=== PATIENT | female | born 1970 | race Hispanic/Latino ===

== ENCOUNTER 2024-07-09 21:02 | Emergency (ER) | payer OTHER ==
--- NOTE | 2024-07-09 21:24 | EDPHYS ---
Physician Documentation [facility] Name: Maria Alejandra Weir Age: 54 yrs Sex: Female : 1970 Arrival Date: 07/09/2024 Time: 21:02 Bed DX3 Private MD: ED Physician James Pisano HPI: 07/09 21:19 This 54 yrs old Female presents to ER via Unassigned with complaints of Toothache. kb 21:19 Pt is a 54 year old female who presents for toothache to right upper jaw that has been kb ongoing for 3 days. States she had a tooth extraction on Tuesday afternoon, 4 days ago. States she has had some pus draining from the extraction site. Called her dentist and was told to come to the ER for antibiotics. Historical: - Allergies: 21:30 PENICILLINS; ha1 - Immunization history:: Adult Immunizations up to date. - Infectious Disease History:: Denies. - Social history:: Smoking status: Patient denies any tobacco usage or history of. ROS: 21:20 Constitutional: As per HPI kb Exam: 21:20 Constitutional: This is a well developed, well nourished patient who is awake, alert, kb and in no acute distress. Head/Face: Normocephalic, atraumatic. Cardiovascular: Regular rate Respiratory: Respirations even and unlabored. No increased work of breathing. Talking in full sentences Skin: Warm, dry with normal turgor. Normal color. MS/ Extremity: Pulses equal, no cyanosis. Neurovascular intact. Full, normal range of motion. Neuro: Awake and alert, GCS 15, oriented to person, place, time, and situation. 21:20 ENT: Dental exam: gum swelling, that is moderate, specifically in the upper right second bicuspid (#4), pain, that is moderate, specifically in the upper right second bicuspid (#4), Vital Signs: 21:25 BP 138 / 101; Pulse 77; Resp 16; Temp 97.3(T); Pulse Ox 99% on R/A; Weight 111.13 kg; ha1 Height 5 ft. 5 in. ; Pain 10/10; 21:25 Body Mass Index 40.77 (111.13 kg, 165.1 cm) ha1 21:25 Pain Scale: Adult ha1 MDM: 21:12 Medical Screening Exam initiated kb 21:23 Differential diagnosis: dental caries, gingivitis, dental abscess, pericoronitis. Data kb reviewed: vital signs, nurses notes. I considered the following discharge prescriptions or medication management in the emergency department I discussed and recommended Over The Counter medications, augmentin prescribed. Counseling: I had a detailed discussion with the patient and/or guardian regarding the historical points, exam findings, and any diagnostic results supporting the discharge/admit diagnosis, the need for outpatient follow up, a dentist, to return to the emergency department if symptoms worsen or persist or if there are any questions or concerns that arise at home. Administered Medications: 21:35 Drug: Amoxicillin-Clavulanate PO 875 mg PO once Route: PO; ha1 21:49 Follow up: Response: No adverse reaction 1 21:35 Drug: [place] PO 10 mg-325 mg 1 tabs PO once Route: PO; ha1 21:49 Follow up: Response: No adverse reaction; Marked relief of symptoms; Pain is decreased; ha1 RASS: Alert and Calm (0) Disposition: 07/10 18:47 Co-signature as Attending Physician, James Pisano MD I agree with the assessment sp4 and plan of care. I reviewed the patient's care provided by the Advanced Practice Provider and agree with the diagnosis and treatment plan. Disposition Summary: 07/09/24 21:24 Discharge Ordered Notes: Location: Home kb Condition: Stable kb Diagnosis - Periapical abscess without sinus kb Followup: kb - With: Emergency Department - When: As needed - Reason: Worsening of condition Followup: kb - With: Private Physician - When: 2 - 3 days - Reason: Recheck today's complaints, Continuance of care, Re-evaluation by your physician Discharge Instructions: - Discharge Summary Sheet kb - Skin Abscess, [id number] kb - Dental Pain, [id number] kb Forms: - Medication Reconciliation Form kb - Antibiotic Education kb - Prescription Opioid Use kb - Patient Portal Instructions kb - Leadership Thank You Letter kb Prescriptions: - Augmentin 875-125 mg Oral Tablet - take 1 tablet ORAL route every 12 hours for 10 days; 20 tablet; Refills: 0, kb Product Selection Permitted Signatures: Mariana Saenz FNP-C FNP-Ckb Ayala, Heidy, RN RN ha1 James Pisano MD MD sp4 Corrections: (The following items were deleted from the chart) 07/09 21:38 21:30 Allergies: No Known Allergies; ha1 ha1
[2024-07-09] MEDS ORDERED: AMOX/K CLAV 875 MG TAB ONE (21:33)
[2024-07-09] MEDS ORDERED: HYDROCODONE/APAP 10/325 TAB ONE (21:33)
--- NOTE | 2024-07-09 21:50 | ER ---
[facility]'s [facility] Name: Maria Alejandra Weir Age: 54 yrs Sex: Female : 1970 Arrival Date: 07/09/2024 Time: 21:02 Bed DX3 Private MD: Diagnosis: Periapical abscess without sinus Presentation: 07/09 21:25 Chief complaint: Patient states: TOOTH ACHE ON THE RIGHT SIDE OF JAW FOR THE PAST THREE ha1 DAYS. 21:25 Coronavirus screen: Client denies travel out of the [place] in the last 14 days. Ebola ha1 Screen: No symptoms or risks identified at this time. Initial Sepsis Screen: Does the patient meet any 2 criteria? No. Patient's initial sepsis screen is negative. Does the patient have a suspected source of infection? No. Patient's initial sepsis screen is negative. Risk Assessment: Do you want to hurt yourself or someone else? Patient reports no desire to harm self or others. Onset of symptoms was July 09, 2024. 21:25 Method Of Arrival: Ambulatory ha1 21:25 Acuity: MIC 5 ha1 Triage Assessment: 21:30 General: Appears uncomfortable, Behavior is cooperative. EENT: Reports pain in right ha1 jaw. Neuro: Level of Consciousness is awake, alert, obeys commands, Oriented to person, place, time, situation. Cardiovascular: Capillary refill < 3 seconds Patient's skin is warm and dry. Respiratory: Airway is patent Respiratory effort is even, unlabored, Respiratory pattern is regular, symmetrical. GI: Abdomen is round non-distended. : No signs and/or symptoms were reported regarding the genitourinary system. Musculoskeletal: Circulation, motion, and sensation intact. Range of motion: intact in all extremities. Historical: - Allergies: 21:30 PENICILLINS; ha1 - Immunization history:: Adult Immunizations up to date. - Infectious Disease History:: Denies. - Social history:: Smoking status: Patient denies any tobacco usage or history of. Screenin:40 [facility] ED Fall Risk Assessment (Adult) History of falling in the last 3 months, ha1 including since admission No falls in past 3 months (0 pts) Confusion or Disorientation No (0 pts) Intoxicated or Sedated No (0 pts) Impaired Gait No (0 pts) Mobility Assist Device Used No (0 pt) Altered Elimination No (0 pt) Score/Fall Risk Level 0 - 2 = Low Risk Oriented to surroundings, Maintained a safe environment, Educated pt \T\ family on fall prevention, incl call for assistance when getting out of bed, Hourly rounding (assess needs \T\ fall precautionary measures) done. Abuse screen: Denies threats or abuse. Denies injuries from another. Nutritional screening: No deficits noted. Tuberculosis screening: No symptoms or risk factors identified. Vital Signs: 21:25 BP 138 / 101; Pulse 77; Resp 16; Temp 97.3(T); Pulse Ox 99% on R/A; Weight 111.13 kg; ha1 Height 5 ft. 5 in. ; Pain 10/10; 21:25 Body Mass Index 40.77 (111.13 kg, 165.1 cm) ha1 21:25 Pain Scale: Adult [facility] ED Course: 21:04 Patient arrived in ED. [id number] 21:12 Mariana Saenz FNP-C [facility] 21:12 James Pisano MD is Attending Physician. 21:35 Aruna Shabazz, DENISE is Primary Nurse. ha1 21:37 Triage completed. ha1 21:40 Patient has correct armband on for positive identification. Bed in low position. Call ha1 light in reach. Side rails up X 1. 21:40 No provider procedures requiring assistance completed. Patient did not have IV access ha1 during this emergency room visit. 21:50 Arm band placed on right wrist. ha1 21:50 Provided Education on: FOLLOW [employer]. ha1 Administered Medications: 21:35 Drug: Amoxicillin-Clavulanate PO 875 mg PO once Route: PO; ha1 21:49 Follow up: Response: No adverse reaction ha1 21:35 Drug: [place] PO 10 mg-325 mg 1 tabs PO once Route: PO; ha1 21:49 Follow up: Response: No adverse reaction; Marked relief of symptoms; Pain is decreased; ha1 RASS: Alert and Calm (0) Medication: 21:41 VIS not applicable for this client. ha1 Outcome: 21:24 Discharge ordered by . kb 21:49 Discharged to home ambulatory, ha1 21:49 Condition: stable 21:49 Discharge instructions given to patient, Instructed on discharge instructions, follow up and referral plans. medication usage, Demonstrated understanding of instructions, follow-up care, medications, Prescriptions given X 1, 21:50 Patient left the ED. ha1 Signatures: Mariana Saenz FNP-C FNP-Deyanira [id number] Aruna Shabazz RN RN ha1 Corrections: (The following items were deleted from the chart) 21:38 21:30 Allergies: No Known Allergies; ha1 ha1 21:49 21:49 Response: No adverse reaction; Marked relief of symptoms ha1 ha1
[2024-07-09 22:17] VITALS: BP 138/101; TEMP 97.3; O2SAT 99
== END 2024-07-09 21:50 | disposition home or self-care (01) ==
LOC: ER 21:02
DX: K04.7 Periapical abscess without sinus (principal)
CPT/HCPCS: 99283